=== PATIENT | female | born 1995 ===

== ENCOUNTER 2024-07-02 12:38 | Emergency (ER) | payer BC ==
[2024-07-02] MEDS: Ketorolac 30 MG/ML SDV IM ONE (13:49)
== END 2024-07-02 14:21 | disposition home or self-care (01) ==
LOC: FB.ED 12:38
DX: S93.402A Sprain of unspecified ligament of left ankle, initial encounter (principal); X50.1XXA Overexertion from prolonged static or awkward postures, initial encounter
CPT/HCPCS: 73610; 96372; 99283; J1885